=== PATIENT | male | born 1975 | race Caucasian/White ===

== ENCOUNTER 2017-08-23 15:11 | Emergency (ER) | payer BC ==
[2017-08-23 19:56] VITALS: BP 148/94
== END 2017-08-23 19:56 | disposition home or self-care (01) ==
LOC: ED 15:11
DX: S61.411A Laceration without foreign body of right hand, initial encounter (principal); J45.909 Unspecified asthma, uncomplicated; W26.8XXA Contact with other sharp object(s), not elsewhere classified, initial encounter; Y93.89 Activity, other specified; Y99.8 Other external cause status; Y92.89 Other specified places as the place of occurrence of the external cause
CPT/HCPCS: 90715; J2001; J3490